=== PATIENT | female | born 2005 | race Caucasian/White ===

== ENCOUNTER 2024-08-29 15:38 | Emergency (ER) | payer OTHER, SELFPAY ==
[2024-08-29 15:44] VITALS: BP 107/70; PULSE 60; RESP 16; TEMP 36.6; O2SAT 99
--- NOTE | 2024-08-29 15:56 | ED_ITS ---
HPI - Skin/Abscess/Foreign Bdy 2 General: Chief complaint: Skin/Abscess/Foreign Body Stated complaint: spider bite left lower back Time Seen by Provider: 08/29/24 15:41 Source: patient Mode of arrival: ambulatory Limitations: no limitations History of Present Illness: Patient is a 19-year-old female presents to ED today concerned she may have a spider bite to her left upper thigh/buttock area that she noticed yesterday. Patient states she did not witness getting bit by any type of spider or insect. She did notice an area that was uncomfortable and when she visualized the area stated it was dark and blue in appearance. She states she began having chills, body ache, nausea. She states the symptoms have since resolved. She states she woke up today and noticed swelling surrounding the area thus decided to seek medical evaluation-reports the dark blue appearance is almost gone now. No discharge. No fevers. MD complaint: insect bite/sting Onset (ago): day(s) Tetanus up to date: yes Location: buttocks and LLE Severity: mild Quality: burning Pain Consistency: constant Relieving factors: none Exacerbating factors: none Context: none Associated symptoms: Reports chills (subsided now) and nausea (subsided now); Deny fever(s) or vomiting Treatments prior to arrival: none Related Data Home Medications ?Medication ?Instructions ?Recorded ?Confirmed acetaminophen 325 mg tablet 650 mg PO QID PRN Pain 01/1508/29/24 (Tylenol) Allergies Allergy/AdvReac Type Severity Reaction Status Date / Time No Known Allergies Allergy Verified 08/29/24 15:53 Review of Systems 2 Const: Reports: chills (subsided now) and body aches (subsided now); Denies: fever(s), fatigue or malaise Eyes: Denies: change in vision ENMT: Denies: throat pain, odynophagia, nasal discharge, nasal congestion or sinus pain Card: Denies: chest pain Resp: Denies: dyspnea GI: Reports: nausea (subsided now); Denies: abdominal pain, vomiting or change in bowel habits : Denies: flank pain or dysuria Musc: Denies: neck pain, back pain, extremity pain, extremity swelling, joint pain, joint swelling or joint redness Skin/Breast: Reports: other (burning, swelling at site of presumed bite) Neuro: Denies: headache(s) Physical Exam 2 Const: COMMON NORMALS: no acute distress, average body habitus, no limitations, healthy appearing, alert and well nourished GENERAL APPEARANCE: cooperative Resp: COMMON NORMALS: normal respiratory effort and clear to auscultation bilaterally AUSCULTATION: clear to auscultation bilaterally Cardio: COMMON NORMALS: regular rate and regular rhythm RATE: regular rate RHYTHM: regular rhythm Back/Pelvis: BACK IMAGE (FEMALE): 1. very faint dusky appearing area without obvious central bite; no skin break down/necrosis; no drainage 2. larger wheel like appearance of edema surrounding the central dusky area Extremity: GENERAL: Yes normal exam except as noted Neuro: COMMON NORMALS: moves all extremities, no focal motor deficits, no sensory deficits noted and gait normal SENSORIUM/ORIENTATION: Yes alert Skin: NARRATIVE SKIN EXAM: see above Course 2 Vital Signs: Vital signs: Vital Signs Temperature 97.9 F 08/29/24 15:44 Pulse Rate 60 08/29/24 15:44 Respiratory Rate 16 08/29/24 15:44 Blood Pressure 107/70 08/29/24 15:44 Pulse Oximetry 99 08/29/24 15:44 Oxygen Delivery Me thod Room Air 08/29/24 15:44 MDM - Skin/Abscess/Foreign Bdy Medicial Decision Making History and physical examination is consistent with a bite of some sort-probably a spider. She has no skin necrosis. No evidence of infection. We discussed how common reactions of spider bites are localized edema, redness, pain/burning, and sometimes a dusky or purple center but that the vast majority do not cause necrosis and need formal treatment. We discussed that antibiotics are not indicated for spider bites unless they become secondarily infected and we discussed ways to prevent this. Topical lidocaine to help with burning. Discussed signs/symptoms to prompt repeat medical evaluation. Medical Records I reviewed the patient's medical records. No radiology studies performed this visit Discharge Plan Discharge Patient Disposition: Home Clinical Impression: Accidental spider bite Condition: Stable Prescriptions: No Action acetaminophen [Tylenol] 325 mg Tablet 650 mg PO QID PRN (Reason: Pain) Discharge Orders: Discharge ED (Routine); Ordered 08/29/24 Ordered By: Monica David Patient Instructions: Brown Recluse Spider Bite, Insect Bite or Sting (ED) Activity Restrictions/Additional Instructions: As we discussed, area to your thigh does appear to be a spider bite of some sort. As we discussed, common reactions of this include localized edema or swelling, redness, pain/burning, and sometimes a dusky or purple center. As we discussed most spider bites do not exhibit skin necrosis. Antibiotics are not indicated for spider bites unless they become secondarily infected. Treatment at this time would include keeping wound clean with warm soap and water. Avoid picking or poking. You may try topical lidocaine to help with burning. Continue to monitor symptoms closely. Please seek medical reevaluation for purulent or odorous drainage, skin necrosis, worsening swelling, redness, or warmth, or any other concerns you may have. 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
== END 2024-08-29 17:01 | disposition home or self-care (01) ==
PROVIDERS: Emergency Provider Physician Assistant
DX: T63.301A Toxic effect of unspecified spider venom, accidental (unintentional), initial encounter (principal); X58.XXXA Exposure to other specified factors, initial encounter
CPT/HCPCS: 99282

== ENCOUNTER 2024-09-01 05:06 | Emergency (ER) | payer OTHER, SELFPAY ==
[2024-09-01 05:11] VITALS: BP 116/72; PULSE 70; RESP 16; TEMP 36.9; O2SAT 98; BMI 20.7
[2024-09-01 05:20] VITALS: BP 101/61; PULSE 67; RESP 13; O2SAT 99
--- NOTE | 2024-09-01 05:54 | XRR_ITS ---
PROCEDURE INFORMATION: Exam: XR Chest Exam date and time: 09/01/2024 7:01 AM Age: 19 years old Clinical indication: Cough and shortness of breath; Cough with SOB; Additional info: Cough SOB TECHNIQUE: Imaging protocol: Radiologic exam of the chest. Views: 1 view. COMPARISON: No relevant prior studies available. FINDINGS: Lungs: Unremarkable. No consolidation. Pleural spaces: Unremarkable. No pleural effusion. No pneumothorax. Heart/Mediastinum: Unremarkable. No cardiomegaly. Bones/joints: Unremarkable. XR/XR chest 1V portable [id number] IMPRESSION: No acute findings.
--- NOTE | 2024-09-01 05:57 | ED_ITS ---
Documented by User: Tae Pate, 09/02/24 13:57 HPI - URI/Sore Throat 2 General: Chief Complaint: Upper Respiratory Infection Stated Complaint: Left Hip Spider Bite Time Seen by Provider: 09/01/24 05:46 History of Present Illness: 19-year-old female who got sick last ht. She vomited multiple times last night, and twice this morning. She has had sweats and aches. She is run a fever. She complains of cough, sore throat as well. She was sent here from work due to this illness. She also complains of continued pain and rash to her left iliac crest area where a bug bite with envenomation was noted here 3 days ago. She does not believe she is . Related Data Home Medications ?Medication ?Instructions ?Recorded ?Confirmed acetaminophen 325 mg tablet 650 mg PO QID PRN Pain 01/1509/01/24 (Tylenol) Previous Rx's ?Medication ?Instructions ?Recorded ketorolac 10 mg tablet 10 mg PO TID PRN pain #10 ta bs 09/01/24 ondansetron 4 mg disintegrating 4 mg PO Q6H PRN nausea and 09/01/24 tablet vomiting #14 tabs sulfamethoxazole 800 1 tab PO DAILY 10 days #20 t abs 09/01/24 mg-trimethoprim 160 mg tablet (Bactrim DS) Allergies Allergy/AdvReac Type Severity Reaction Status Date / Time No Known Allergies Allergy Verified 09/01/24 05:20 [facility] 2 Female Reproductive History: Date of last menstrual period: 08/03/24 Physical Exam 2 Const: GENERAL APPEARANCE: cooperative and ill appearing (Mildly); not frail appearing HENMT: COMMON NORMALS: normocephalic, atraumatic, external ears normal, Normal external nose present and Normal nasal mucous membranes and turbinates present HEAD & SCALP: normocephalic and atraumatic FACE & SINUS: normal facial exam and face symmetric; no edema NOSE: Normal external nose present and Normal nasal mucous membranes and turbinates present EXTERNAL EAR: Yes external ears normal MOUTH: N ormal oral and palatal mucosa present and tongue normal THROAT: posterior oropharynx abnormal erythema Eye: COMMON NORMALS: Equal, round and reactive pupils present, EOMs intact bilaterally and conjunctivae normal CONJUNCTIVA: Yes conjunctivae normal P UPIL: Yes Equal, round and reactive pupils present Resp: COMMON NORMALS: normal respiratory effort, No use of accessory muscles and clear to auscultation bilaterally AUSCULTATION: clear to auscultation bilaterally Cardio: COMMON NORMALS: regular rate and regular rhythm RATE: regular rate RHYTHM: regular rhythm GI: COMMON NORMALS: Soft to palpation and non-tender PALPATION: Yes Soft to palpation Skin: NARRATIVE SKIN EXAM: 2.5 cm circular area with central cleari ng indicative of bug bite with envenomation. No fluctuance. Minimal induration. No streaking. Course 2 Vital Signs: Vital signs: Vital Signs Temperature 98.4 F 09/01/24 05:11 Pulse Rate 81 09/01/24 08:13 Respiratory Rate 13 09/01/24 06:30 Blood Pressure 99/69 09/01/24 08:13 Pulse Oximetry 98 09/01/24 08:13 Oxygen Delivery Me thod Room Air 09/01/24 05:11 MDM - URI/Sore Throat Medical Decision Making Lab work and swabs are pending. Lab Data 09/01/24 06:12 09/01/24 06:12 Radiology Impressions Chest X-Ray 09/01/24 05:54 IMPRESSION: No acute findings. Laboratory Results WBC 4.22 10^3/uL (4.5-13.0) L 09/01/24 06:12 RBC 4.28 10^6/uL (3.85-5.65) 09/01/24 06:12 Hgb 13.30 g/dL (12.4-14.8) 09/01/24 06:12 Hct 38.5 % (36-47) 09/01/24 06:12 MCV 90.0 fl (85-98) 09/01/24 06:12 MCH 31.1 pg (27-33) 09/01/24 06:12 MCHC 34.5 g/dL (30-55) 09/01/24 06:12 RDW 13.4 % (12.1-15.1) 09/01/24 06:12 Plt Count 273 10^3/cmm (157-399) 09/01/24 06:12 MPV 9.8 fL (7.4-10.4) 09/01/24 06:12 Neut % (Auto) 43.5 % 09/01/24 06:12 Lymph % (Auto) 34.8 % 09/01/24 06:12 Nobles % (Auto) 18.7 % 09/01/24 06:12 Eos % (Auto) 2.1 % 09/01/24 06:12 Baso % (Auto) 0.7 % 09/01/24 06:12 Neut # (Auto) 1.83 10^3/uL (1.8-8.0) 09/01/24 06:12 Lymph # (Auto) 1.5 10^3/uL (1.5-6.5) 09/01/24 06:12 Nobles # (Auto) 0.8 10^3/uL (0.2-0.9) 09/01/24 06:12 Eos # (Auto) 0.1 10^3/uL (0.0-0.8) 09/01/24 06:12 Baso # (Auto) 0.0 10^3/uL (0.0-0.1) 09/01/24 06:12 Nucleated RBC % (auto) 0 % 09/01/24 06:12 Nucleated RBCs # 0.0 /100WBC 09/01/24 06:12 Sodium 139 mmol/L (136-145) 09/01/24 06:12 Potassium 4.1 mmol/L (3.5-5.1) 09/01/24 06:12 Chloride 103 mmol/L (98-107) 09/01/24 06:12 Carbon Dioxide 25 mmol/L (22-29) 09/01/24 06:12 Anion Gap 15.1 (5-19) 09/01/24 06:12 BUN 14 mg/dL (6-20) 09/01/24 06:12 Creatinine 0.5 mg/dL (0.5-0.9) 09/01/24 06:12 GFR Calculation 157.3 mL/min (90-130) H 09/01/24 06:12 Glucose 92 mg/dL (65-115) 09/01/24 06:12 Calculated Osmolality 288 mOsm/kg (285-295) 09/01/24 06:12 Calcium 9.3 mg/dL (8.5-10.5) 09/01/24 06:12 Total Bilirubin 0.3 mg/dL (0.15-1.2) 09/01/24 06:12 AST 15 U/L (0-32) 09/01/24 06:12 ALT 7 U/L (0-33) 09/01/24 06:12 Alkaline Phosphatase 60 U/L (35-105) 09/01/24 06:12 Total Protein 8.0 g/dL (6.6-8.7) 09/01/24 06:12 Albumin 4.3 g/dL (3.5-5.2) 09/01/24 06:12 Globulin 3.7 g/dL (1.3-4.6) 09/01/24 06:12 HCG, Qual Negative (Negative) 09/01/24 06:12 Urine Color Yellow (Yellow) 09/01/24 06:12 Urine Appearance Clear (CLEAR) 09/01/24 06:12 Urine pH 5.5 (5-7) 09/01/24 06:12 Ur Specific Severn 1.027 (1.005-1.030) 09/01/24 06:12 Urine Protein Negative (Negative) 09/01/24 06:12 Urine Glucose (UA) Negative (Normal) 09/01/24 06:12 Urine Ketones Negative (Negative) 09/01/24 06:12 Urine Blood Negative (Negative) 09/01/24 06:12 Urine Nitrate Negative (Negative) 09/01/24 06:12 Urine Bilirubin Negative (Negative) 09/01/24 06:12 Urine Urobilinogen 1.0 mg/dL (Negative) 09/01/24 06:12 Ur Leukocyte Esterase Negative (Negative) 09/01/24 06:12 Urine RBC 0-2 /hpf (0-2) 09/01/24 06:12 Urine WBC 0-5 /hpf (0-5) 09/01/24 06:12 Ur Squamous Epith Cells 11-20 /hpf (0-5) H 09/01/24 06:12 Amorphous Sediment Not Reportable 09/01/24 06:12 Urine Bacteria 1+ /hpf (NONE) H 09/01/24 06:12 Hyaline Casts 0.40 /lpf 09/01/24 06:12 Influenza A (PCR) Negative (Negative) 09/01/24 06:12 Influenza Type B (PCR) Negative (Negative) 09/01/24 06:12 RSV (PCR) Negative (Negative) 09/01/24 06:12 SARS-CoV-2 (PCR) Negative (Negative) 09/01/24 06:12 Group A Strep Rapid Negative (Negative) 09/01/24 06:12 Discharge Plan Discharge Patient Disposition: Home Clinical Impression: Accidental spider bite, Upper respiratory infection Condition: Stable Prescriptions: New ondansetron 4 mg tablet,disintegrating 4 mg PO Q6H PRN (Reason: nausea and vomiting) Qty: 14 0RF ketorolac 10 mg tablet 10 mg PO TID PRN (Reason: pain) Qty: 10 0RF sulfamethoxazole-trimethoprim [Bactrim DS] 800-160 mg tablet 1 tab PO DAILY 10 Days Qty: 20 0RF No Action acetaminophen [Tylenol] 325 mg Tablet 650 mg PO QID PRN (Reason: Pain) Discharge Orders: Discharge ED (Routine); Ordered 09/01/24 Ordered By: Aaron Trinh Patient Instructions: Upper Respiratory Infection (ED), Opioid Safety, Pain Management Activity Restrictions/Additional Instructions: Thank you for choosing [facility] for your healthcare needs today. It is very important that you follow up as instructed or that you return to the Emergency Department should you have concerns or if your condition changes or worsens in any way. You are seen in the emergency room with complaints of sinus congestion and cough. Flu and COVID were negative chest x-ray did not show any acute changes. You are also reported an irritated area on your right hip from a insect bite. It does appear to be infected recommend you start on oral antibiotics Bactrim 1 pill twice a day for 10 days follow-up with your primary care doctor if not improving. 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 [employer] Documented by User: Aaron Trinh DO 09/01/24 08:18 HPI - URI/Sore Throat 2 General: Chief Complaint: Upper Respiratory Infection Stated Complaint: Left Hip Spider Bite Time Seen by Provider: 09/01/24 05:46 Related Data Home Medications ?Medication ?Instructions ?Recorded ?Confirmed acetaminophen 325 mg tablet 650 mg PO QID PRN Pain 01/1509/01/24 (Tylenol) Previous Rx's ?Medication ?Instructions ?Recorded ketorolac 10 mg tablet 10 mg PO TID PRN pain #10 ta bs 09/01/24 ondansetron 4 mg disintegrating 4 mg PO Q6H PRN nausea and 09/01/24 tablet vomiting #14 tabs sulfamethoxazole 800 1 tab PO DAILY 10 days #20 t abs 09/01/24 mg-trimethoprim 160 mg tablet (Bactrim DS) Allergies Allergy/AdvReac Type Severity Reaction Status Date / Time No Known Allergies Allergy Verified 09/01/24 05:20 Course 2 Vital Signs: Vital signs: Vital Signs Temperature 98.4 F 09/01/24 05:11 Pulse Rate 81 09/01/24 08:13 Respiratory Rate 13 09/01/24 06:30 Blood Pressure 99/69 09/01/24 08:13 Pulse Oximetry 98 09/01/24 08:13 Oxygen Delivery Me thod Room Air 09/01/24 05:11 MDM - URI/Sore Throat Medical Decision Making Lab work and swabs are pending. Care assumed at change of shift from Dr. Pate. COVID flu RSV are negative. Chest x-ray does not show any acute findings. White count actually slightly low. Examination of the left hip there is an indurated area with some retraction warm to the touch and exquisitely tender. Will treat his infection start Bactrim DS 1 p.o. twice daily I think her upper respiratory stuff is more likely nondescript viral supportive cares follow-up as needed Medical Records I reviewed the patient's medical records. Lab Data I reviewed the patient's lab results. 09/01/24 06:12 09/01/24 06:12 Radiology Impressions Chest X-Ray 09/01/24 05:54 IMPRESSION: No acute findings. Laboratory Results WBC 4.22 10^3/uL (4.5-13.0) L 09/01/24 06:12 RBC 4.28 10^6/uL (3.85-5.65) 09/01/24 06:12 Hgb 13.30 g/dL (12.4-14.8) 09/01/24 06:12 Hct 38.5 % (36-47) 09/01/24 06:12 MCV 90.0 fl (85-98) 09/01/24 06:12 MCH 31.1 pg (27-33) 09/01/24 06:12 MCHC 34.5 g/dL (30-55) 09/01/24 06:12 RDW 13.4 % (12.1-15.1) 09/01/24 06:12 Plt Count 273 10^3/cmm (157-399) 09/01/24 06:12 MPV 9.8 fL (7.4-10.4) 09/01/24 06:12 Neut % (Auto) 43.5 % 09/01/24 06:12 Lymph % (Auto) 34.8 % 09/01/24 06:12 Nobles % (Auto) 18.7 % 09/01/24 06:12 Eos % (Auto) 2.1 % 09/01/24 06:12 Baso % (Auto) 0.7 % 09/01/24 06:12 Neut # (Auto) 1.83 10^3/uL (1.8-8.0) 09/01/24 06:12 Lymph # (Auto) 1.5 10^3/uL (1.5-6.5) 09/01/24 06:12 Nobles # (Auto) 0.8 10^3/uL (0.2-0.9) 09/01/24 06:12 Eos # (Auto) 0.1 10^3/uL (0.0-0.8) 09/01/24 06:12 Baso # (Auto) 0.0 10^3/uL (0.0-0.1) 09/01/24 06:12 Nucleated RBC % (auto) 0 % 09/01/24 06:12 Nucleated RBCs # 0.0 /100WBC 09/01/24 06:12 Sodium 139 mmol/L (136-145) 09/01/24 06:12 Potassium 4.1 mmol/L (3.5-5.1) 09/01/24 06:12 Chloride 103 mmol/L (98-107) 09/01/24 06:12 Carbon Dioxide 25 mmol/L (22-29) 09/01/24 06:12 Anion Gap 15.1 (5-19) 09/01/24 06:12 BUN 14 mg/dL (6-20) 09/01/24 06:12 Creatinine 0.5 mg/dL (0.5-0.9) 09/01/24 06:12 GFR Calculation 157.3 mL/min (90-130) H 09/01/24 06:12 Glucose 92 mg/dL (65-115) 09/01/24 06:12 Calculated Osmolality 288 mOsm/kg (285-295) 09/01/24 06:12 Calcium 9.3 mg/dL (8.5-10.5) 09/01/24 06:12 Total Bilirubin 0.3 mg/dL (0.15-1.2) 09/01/24 06:12 AST 15 U/L (0-32) 09/01/24 06:12 ALT 7 U/L (0-33) 09/01/24 06:12 Alkaline Phosphatase 60 U/L (35-105) 09/01/24 06:12 Total Protein 8.0 g/dL (6.6-8.7) 09/01/24 06:12 Albumin 4.3 g/dL (3.5-5.2) 09/01/24 06:12 Globulin 3.7 g/dL (1.3-4.6) 09/01/24 06:12 HCG, Qual Negative (Negative) 09/01/24 06:12 Urine Color Yellow (Yellow) 09/01/24 06:12 Urine Appearance Clear (CLEAR) 09/01/24 06:12 Urine pH 5.5 (5-7) 09/01/24 06:12 Ur Specific Severn 1.027 (1.005-1.030) 09/01/24 06:12 Urine Protein Negative (Negative) 09/01/24 06:12 Urine Glucose (UA) Negative (Normal) 09/01/24 06:12 Urine Ketones Negative (Negative) 09/01/24 06:12 Urine Blood Negative (Negative) 09/01/24 06:12 Urine Nitrate Negative (Negative) 09/01/24 06:12 Urine Bilirubin Negative (Negative) 09/01/24 06:12 Urine Urobilinogen 1.0 mg/dL (Negative) 09/01/24 06:12 Ur Leukocyte Esterase Negative (Negative) 09/01/24 06:12 Urine RBC 0-2 /hpf (0-2) 09/01/24 06:12 Urine WBC 0-5 /hpf (0-5) 09/01/24 06:12 Ur Squamous Epith Cells 11-20 /hpf (0-5) H 09/01/24 06:12 Amorphous Sediment Not Reportable 09/01/24 06:12 Urine Bacteria 1+ /hpf (NONE) H 09/01/24 06:12 Hyaline Casts 0.40 /lpf 09/01/24 06:12 Influenza A (PCR) Negative (Negative) 09/01/24 06:12 Influenza Type B (PCR) Negative (Negative) 09/01/24 06:12 RSV (PCR) Negative (Negative) 09/01/24 06:12 SARS-CoV-2 (PCR) Negative (Negative) 09/01/24 06:12 Group A Strep Rapid Negative (Negative) 09/01/24 06:12 All radiology interpretation(s) finalized by discharge Discharge Plan Discharge Patient Disposition: Home Clinical Impression: Accidental spider bite, Upper respiratory infection Condition: Stable Prescriptions: New ondansetron 4 mg tablet,disintegrating 4 mg PO Q6H PRN (Reason: nausea and vomiting) Qty: 14 0RF ketorolac 10 mg tablet 10 mg PO TID PRN (Reason: pain) Qty: 10 0RF sulfamethoxazole-trimethoprim [Bactrim DS] 800-160 mg tablet 1 tab PO DAILY 10 Days Qty: 20 0RF No Action acetaminophen [Tylenol] 325 mg Tablet 650 mg PO QID PRN (Reason: Pain) Discharge Orders: Discharge ED (Routine); Ordered 09/01/24 Ordered By: Aaron Trinh Patient Instructions: Upper Respiratory Infection (ED), Opioid Safety, Pain Management Activity Restrictions/Additional Instructions: Thank you for choosing [facility] for your healthcare needs today. It is very important that you follow up as instructed or that you return to the Emergency Department should you have concerns or if your condition changes or worsens in any way. You are seen in the emergency room with complaints of sinus congestion and cough. Flu and COVID were negative chest x-ray did not show any acute changes. You are also reported an irritated area on your right hip from a insect bite. It does appear to be infected recommend you start on oral antibiotics Bactrim 1 pill twice a day for 10 days follow-up with your primary care doctor if not improving. 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
[2024-09-01] MEDS: ondansetron 2 mg/ML SDV 2 mL 4 MG IVP (06:11)
[2024-09-01] MEDS: sodium chloride 0.9% 1,000 ML 999 ML IV (06:16)
[2024-09-01] MEDS: ketorolac 30 mg/mL INJ 15 MG IVP (06:16)
[2024-09-01 06:20] VITALS: BP 101/61; PULSE 52; RESP 16; O2SAT 98
[2024-09-01 06:28] LABS: Basophils % 0.7 %; Eosinophils # 0.1 10^3/uL (0.0-0.8); Eosinophils % 2.1 %; Hematocrit 38.5 % (36-47); Lymphocytes # 1.5 10^3/uL (1.5-6.5); Lymphocytes % 34.8 %; Mean Corpuscular HGB Conc 34.5 g/dL (30-55); Mean Corpuscular Hemoglobin 31.1 pg (27-33); Mean Platelet Volume 9.8 fL (7.4-10.4); Monocytes # 0.8 10^3/uL (0.2-0.9); Monocytes % 18.7 %; Neutrophils # 1.83 10^3/uL (1.8-8.0); Neutrophils % 43.5 %; Nucleated Red Blood Cells % 0 %; Platelet Count 273 10^3/cmm (157-399); Red Blood Count 4.28 10^6/uL (3.85-5.65); Red Cell Distribution Width 13.4 % (12.1-15.1); White Blood Count 4.22 10^3/uL (4.5-13.0)
[2024-09-01 06:30] VITALS: BP 101/61; PULSE 65; RESP 13; O2SAT 100
[2024-09-01 06:42] LABS: HCG, Serum Qual Negative (Negative)
[2024-09-01 06:49] LABS: Alanine Aminotransferase 7 U/L (0-33); Albumin Level 4.3 g/dL (3.5-5.2); Alkaline Phosphatase 60 U/L (35-105); Anion Gap 15.1 (5-19); Aspartate Amino Transferase 15 U/L (0-32); Blood Urea Nitrogen 14 mg/dL (6-20); Calcium 9.3 mg/dL (8.5-10.5); Carbon Dioxide 25 mmol/L (22-29); Chloride 103 mmol/L (98-107); Creatinine Clr Calc Pharmacy 161.1589; Globulin 3.7 g/dL (1.3-4.6); Glomerular Filtration Rate 157.3 mL/min (90-130); Glucose 92 mg/dL (65-115); Osmolality Calculated 288 mOsm/kg (285-295); Potassium 4.1 mmol/L (3.5-5.1); Sodium 139 mmol/L (136-145); Total Bilirubin 0.3 mg/dL (0.15-1.2)
[2024-09-01 06:58] LABS: Bilirubin Urine Negative (Negative); Blood Urine Negative (Negative); Glucose Urine UA Negative (Normal); Ketones Urine Negative (Negative); Leukocyte Esterase Urine Negative (Negative); Nitrate Urine Negative (Negative); Protein Urine Negative (Negative); Specific Gravity, Urine 1.027 (1.005-1.030); Urine Appearance Clear (CLEAR); Urine Color Yellow (Yellow); pH Urine 5.5 (5-7)
[2024-09-01 07:03] LABS: Add Urine Microscopic? YES; Bacteria Urine 1+ /hpf; RBC Urine 0-2 /hpf (0-2); WBC Urine 0-5 /hpf (0-5)
[2024-09-01 07:08] LABS: Rapid Strep A Test Negative (Negative)
[2024-09-01 07:30] LABS: Influenza A NEGATIVE (Negative); Influenza B NEGATIVE (Negative); Respiratory Syncytial Virus Ce NEGATIVE (Negative); SARS-CoV-2 PCR NEGATIVE (Negative)
[2024-09-01 08:13] VITALS: BP 99/69; PULSE 81; O2SAT 98
== END 2024-09-01 08:13 | disposition home or self-care (01) ==
PROVIDERS: Emergency Medicine; Emergency Provider Family Medicine
DX: S30.860A Insect bite (nonvenomous) of lower back and pelvis, initial encounter (principal); J06.9 Acute upper respiratory infection, unspecified; Z11.52 Encounter for screening for COVID-19; W57.XXXA Bitten or stung by nonvenomous insect and other nonvenomous arthropods, initial encounter
CPT/HCPCS: 71045; 80053; 81001; 84703; 85025; 87081; 87637; 87880; 96374; 96375; 99285; J1885; J2405; J7030